=== PATIENT | female | born 1950 | race Caucasian/White ===

== ENCOUNTER 2019-12-28 07:47 | Outpatient (CLI) | payer MEDICARE, BC ==
--- NOTE | 2019-12-28 11:10 | MRI ---
RIGHT KNEE MRI WITHOUT IV CONTRAST: Date: 12/28/2019 HISTORY: Pain, lateral meniscal tear, cyst of meniscus right knee. FINDINGS: No significant joint effusion. Multiple focal full thickness cartilage defects involving the lateral compartment and patellofemoral compartment. The medial meniscus appears unremarkable. There is an obl ique horizontal type tear through the body of the lateral meniscus with evidence for a parameniscal c yst noted lateral to the body of the lateral meniscus measuring approximately 0.7 x 1.9 x 1.7 cm in s ize. Anterior and posterior cruciate ligaments, collateral ligament complexes, and quadriceps and pat ellar tendons appear intact. Extensor mechanism appears unremarkable. No significant acute abnormal m arrow edema. IMPRESSION: 1. Horizontal oblique tear of the body of the lateral meniscus with a lateral parameniscal cyst at t he body of the lateral meniscus. 2. Scattered focal areas of irregular full thickness cartilage loss with some subchondral cystic jennifer nges particularly involving the femoropatellar and lateral compartments. POS: AH
== END 2019-12-28 07:48 | disposition home or self-care (01) ==
LOC: SCSMRI 07:47
PROVIDERS: ATTEND Orthopaedic Surgery
DX: S83.281A Other tear of lateral meniscus, current injury, right knee, initial encounter (principal); M23.006 Cystic meniscus, unspecified meniscus, right knee